=== PATIENT | female | born 1945 | race Hispanic/Latino ===

== ENCOUNTER → 2018-02-13 | Outpatient (CLI) | payer OTHER | LOC: RAH 14:04 | PROVIDERS: ATTEND Internal Medicine | DX: Z12.31 Encounter for screening mammogram for malignant neoplasm of breast (principal) | CPT/HCPCS: 77067 ==

== ENCOUNTER → 2019-02-16 | Outpatient (CLI) | payer OTHER | END | disposition home or self-care (01) | LOC: RAH 15:12 | PROVIDERS: ATTEND Internal Medicine | DX: Z12.31 Encounter for screening mammogram for malignant neoplasm of breast (principal) | CPT/HCPCS: 77067 ==

== ENCOUNTER → 2019-03-20 | Outpatient (CLI) | payer OTHER | END | disposition home or self-care (01) | LOC: RAH 16:19 | PROVIDERS: ATTEND Internal Medicine | DX: M25.512 Pain in left shoulder (principal) | CPT/HCPCS: 73030 ==

== ENCOUNTER → 2019-04-11 | Outpatient (CLI) | payer OTHER | END | disposition home or self-care (01) | LOC: OIH 14:42 | PROVIDERS: ATTEND Internal Medicine Cardiovascular Disease | DX: M47.812 Spondylosis without myelopathy or radiculopathy, cervical region (principal); M85.88 Other specified disorders of bone density and structure, other site; M48.02 Spinal stenosis, cervical region | CPT/HCPCS: 72040 ==

== ENCOUNTER → 2019-04-23 | Outpatient (CLI) | payer OTHER | END | disposition home or self-care (01) | LOC: OIH 15:16 | PROVIDERS: ATTEND Internal Medicine Cardiovascular Disease | DX: Z13.6 Encounter for screening for cardiovascular disorders (principal) | CPT/HCPCS: 75571 ==

== ENCOUNTER → 2020-03-19 | Outpatient (CLI) | payer OTHER | END | disposition home or self-care (01) | LOC: RAH 10:56 | PROVIDERS: ATTEND Internal Medicine | DX: S32.010A Wedge compression fracture of first lumbar vertebra, initial encounter for closed fracture (principal); S32.020A Wedge compression fracture of second lumbar vertebra, initial encounter for closed fracture; M16.12 Unilateral primary osteoarthritis, left hip; X58.XXXA Exposure to other specified factors, initial encounter; Y93.89 Activity, other specified; Y92.89 Other specified places as the place of occurrence of the external cause; Y99.8 Other external cause status | CPT/HCPCS: 72100; 73502 ==

== ENCOUNTER → 2021-02-02 | Outpatient (CLI) | payer OTHER | END | disposition home or self-care (01) | LOC: RAH 11:46 | PROVIDERS: ATTEND Internal Medicine | DX: Z12.31 Encounter for screening mammogram for malignant neoplasm of breast (principal); N64.89 Other specified disorders of breast | CPT/HCPCS: 77067 ==

== ENCOUNTER 2022-02-09 01:57 | Inpatient (IN) | payer OTHER ==
[~2022-02-09] VITALS: Ht 144.8 cm; Wt 46.4 kg
[2022-02-09] VITALS (21 sets, daily range): BP systolic 122–219; BP diastolic 59–105
[2022-02-09 03:20] LABS: BASOPHILS % (AUTO) 0.2 % (0.0-5.0); HEMATOCRIT 38.7 % (36-48); LYMPHOCYTES % (AUTO) 19.2 % (21.0-51.0); MEAN CORPUSCULAR HEMOGLOBIN 33.3 pg (27.0-33.0); MEAN CORPUSCULAR HGB CONC 34.4 g/dL (32.0-36.0); MONOCYTES % (AUTO) 2.1 % (3.0-13.0); NEUTROPHILS % (AUTO) 78.3 % (40.0-77.0); PLATELET COUNT (AUTO) 234 K/uL (130-400); RED BLOOD CELL COUNT(AUTO) 3.99 MIL/uL (4.00-5.50); RED CELL DISTRIBUTION WIDTH 12.4 % (11.0-15.5); WHITE BLOOD COUNT (AUTO) 6.6 K/uL (4.8-10.8)
[2022-02-09] MEDS ORDERED: METOCLOPRAMIDE 10 MG/2 ML VIAL IVP ONE (03:30)
[2022-02-09] MEDS ORDERED: FAMOTIDINE 20MG VIAL IV ONE (03:30)
[2022-02-09] MEDS ORDERED: ONDANSETRON 4MG INJ IVP ONE (03:30)
[2022-02-09] MEDS ORDERED: 0.9%NACL 1000ML 1,000 ML IV ONE ×2 (03:30→06:00)
[2022-02-09] MEDS ORDERED: PANTOPRAZOLE 40 MG/VIAL IVP ONE (03:30)
[2022-02-09 03:31] LABS: CREATININE 0.9 mg/dL (0.5-1.5); POTASSIUM 3.4 mmol/L (3.5-5.1)
[2022-02-09 03:36] LABS: ALBUMIN 4.4 g/dL (3.5-5.0); BILIRUBIN,TOTAL 0.4 mg/dL (0.2-1.0); TOTAL PROTEIN, SERUM 7.1 g/dL (6.0-8.3)
[2022-02-09] MEDS ORDERED: KETOROLAC 15MG/ML VIAL (15MG/ML) IV ONE (06:00)
[2022-02-09 06:03] LABS: APPEARANCE,URINE Cloudy (CLEAR); BILIRUBIN,URINE Negative (NEGATIVE); COLOR,URINE Yellow (YELLOW); GLUCOSE, URINE (UA) Negative (NEGATIVE); KETONES,URINE Negative (NEGATIVE); LEUKOCYTE ESTERASE ,URINE Small (NEGATIVE); NITRATE,URINE Negative (NEGATIVE); OCCULT BLOOD,URINE Negative (NEGATIVE); PH,URINE 5.5 (5.0-8.0); PROTEIN,URINE Trace mg/dL (NEGATIVE); UROBILINOGEN,URINE 0.2 mg/dL (0.2-1.0)
[2022-02-09 06:12] LABS: BACTERIA,URINE Many /HPF (None Seen); RBC,URINE None Seen /HPF (0-1); SQUAMOUS EPITHELIAL CELL,UR Rare /HPF (0-2); WBC,URINE 0-1 /HPF (0-1)
[2022-02-09] MEDS ORDERED: IOHEXOL 350 MG/ML 100ML INFUS..BTL IV ONE (06:37)
[2022-02-09] MEDS ORDERED: CEFTRIAXONE 1G VIAL IVP SCH (07:00)
[2022-02-09] MEDS ORDERED: LACTATED RINGERS 1000ML 1,000 ML IV SCH (08:00)
[2022-02-09] MEDS ORDERED: MORPHINE 2 MG SYG IVP SCH (08:00)
[2022-02-09] MEDS ORDERED: 0.9%NACL 50ML 50 ML IV ONE (08:25)
[2022-02-09] MEDS: ZOSYN 3.375GM +NS 50ML IV SCH ×4 (08:43→21:20)
[2022-02-09] MEDS: FLUCONAZOLE 200 MG/NS 100 ML 100 ML IV SCH (09:00)
[2022-02-09] MEDS ORDERED: THIAMINE HCL 100 MG/ML 2ML VIAL IVP SCH (09:00)
[2022-02-09] MEDS ORDERED: HYDROMORPHONE 0.5 MG SYG (0.5MG/0.5ML) IVP PRN (09:00)
[2022-02-09] MEDS ORDERED: PANTOPRAZOLE 40 MG/VIAL IVP SCH ×2 (09:00)
[2022-02-09] MEDS: LACTATED RINGERS 1000ML 1,000 ML IV SCH ×3 (09:38→22:20)
[2022-02-09 09:40] LABS: B-TYPE NATRIURETIC PEPTIDE 72 pg/mL (0-100)
[2022-02-09] MEDS: THIAMINE HCL 100 MG/ML 2ML VIAL IVP SCH (10:03)
[2022-02-09 10:27] LABS: ERYTHROCYTE SEDIMENTATION RATE 0 MM/HR (0-30)
[2022-02-09] MEDS ORDERED: PROPOFOL 10 MG/ML 20ML VIAL IV ONE (15:45)
[2022-02-09] MEDS ORDERED: ROCURONIUM 10MG/1ML SYR 10 MG/ML ML ONE (15:45)
[2022-02-09] MEDS ORDERED: LIDOCAINE PF 100MG/5ML (2%) SYRINGE 5ML ONE (15:45)
[2022-02-09] MEDS ORDERED: SUCCINYLCHOLINE CHLORIDE 20 MG/ML 10 ML VIAL ONE (15:45)
[2022-02-09] MEDS ORDERED: FENTANYL CITRATE PF 50 MCG/1 ML 5ML AMP IV ONE (15:46)
[2022-02-09 15:52] LABS: INR 1.01 (0.85-1.15)
[2022-02-09] MEDS ORDERED: MIDAZOLAM HCL 1 MG/ML 2ML VIAL ONE (15:52)
[2022-02-09 15:54] LABS: PARTIAL THROMBOPLASTIN TIME 29.1 SEC (26.3-35.5)
[2022-02-09] MEDS ORDERED: ONDANSETRON 4MG INJ ONE (16:27)
[2022-02-09] MEDS ORDERED: BUPIVACAINE/PF 0.5% 30ML VIAL ONE (17:03)
[2022-02-09] MEDS ORDERED: NEOSTIGMINE 5MG/5ML SYR IV ONE (18:08)
[2022-02-09] MEDS ORDERED: GLYCOPYRROLATE 1 MG/5 ML SYRINGE ONE (18:08)
[2022-02-09] MEDS ORDERED: ONDANSETRON 4MG INJ IVP PRN (18:30)
[2022-02-09] MEDS ORDERED: LABETALOL 20MG SYG IV ONE (18:37)
[2022-02-09] MEDS ORDERED: MORPHINE 2 MG SYG ONE (18:37)
[2022-02-09] MEDS ORDERED: ZOSYN 3.375GM+NS 50ML 50 ML IV SCH (21:00)
[2022-02-09] MEDS: PANTOPRAZOLE 40 MG/VIAL IVP SCH (21:20)
[2022-02-10] VITALS (19 sets, daily range): BP systolic 112–152; BP diastolic 56–81
[2022-02-10 03:42] LABS: BASOPHILS % (AUTO) 0.1 % (0.0-5.0); HEMATOCRIT 28.9 % (36-48); LYMPHOCYTES % (AUTO) 8.4 % (21.0-51.0); MEAN CORPUSCULAR HEMOGLOBIN 32.3 pg (27.0-33.0); MEAN CORPUSCULAR HGB CONC 33.9 g/dL (32.0-36.0); MEAN CORPUSCULAR VOLUME 95.4 fL (79-99); MONOCYTES % (AUTO) 5.5 % (3.0-13.0); NEUTROPHILS % (AUTO) 85.6 % (40.0-77.0); PLATELET COUNT (AUTO) 152 K/uL (130-400); RED BLOOD CELL COUNT(AUTO) 3.03 MIL/uL (4.00-5.50); RED CELL DISTRIBUTION WIDTH 12.8 % (11.0-15.5); WHITE BLOOD COUNT (AUTO) 9.6 K/uL (4.8-10.8)
[2022-02-10 03:57] LABS: ALBUMIN 2.6 g/dL (3.5-5.0); BILIRUBIN,DIRECT 0.2 mg/dL (0.0-0.3); BILIRUBIN,TOTAL 0.3 mg/dL (0.2-1.0); CREATININE 0.7 mg/dL (0.5-1.5); MAGNESIUM 1.8 mg/dL (1.80-2.40); POTASSIUM 3.2 mmol/L (3.5-5.1)
[2022-02-10] MEDS: ZOSYN 3.375GM +NS 50ML IV SCH ×3 (05:09→20:36)
[2022-02-10] MEDS ORDERED: POTASSIUM CHLORIDE 20MEQ/100ML 100 ML IV PRN (06:00)
[2022-02-10] MEDS: THIAMINE HCL 100 MG/ML 2ML VIAL IVP SCH (08:00)
[2022-02-10] MEDS: FLUCONAZOLE 200 MG/NS 100 ML 100 ML IV SCH (08:00)
[2022-02-10] MEDS: PANTOPRAZOLE 40 MG/VIAL IVP SCH ×2 (08:00→20:36)
[2022-02-10] MEDS: MEPERIDINE-PF 25 MG/ML SYG IV PRN ×3 (08:02→20:41)
[2022-02-10] MEDS: LACTATED RINGERS 1000ML 1,000 ML IV SCH ×3 (11:40→21:10)
[2022-02-11 00:36] VITALS: BP 164/77
[2022-02-11] MEDS ORDERED: LIDOCAINE HCL-MPF 1% 2ML VIAL IV PRN (01:00)
[2022-02-11] MEDS ORDERED: KCL 20 MEQ ERTAB PO PRN (01:00)
[2022-02-11] MEDS ORDERED: POTASSIUM CHLORIDE 20MEQ/100ML 100 ML IV PRN (01:00)
[2022-02-11] MEDS: LACTATED RINGERS 1000ML 1,000 ML IV SCH ×4 (01:00→23:50)
[2022-02-11] MEDS: ZOSYN 3.375GM +NS 50ML IV SCH ×3 (03:38→21:31)
[2022-02-11] MEDS: POTASSIUM CHLORIDE 10% ELIXIR 20 MEQ/15 ML UDCUP PO PRN ×3 (03:38→14:28)
[2022-02-11] MEDS: MEPERIDINE-PF 25 MG/ML SYG IV PRN ×2 (03:44→21:33)
[2022-02-11 04:32] VITALS: BP 146/75
[2022-02-11 04:39] LABS: BASOPHILS % (AUTO) 0.3 % (0.0-5.0); EOSINOPHILS % (AUTO) 0.7 % (0.0-8.0); HEMATOCRIT 30.5 % (36-48); LYMPHOCYTES % (AUTO) 13.1 % (21.0-51.0); MEAN CORPUSCULAR HEMOGLOBIN 33.3 pg (27.0-33.0); MEAN CORPUSCULAR HGB CONC 33.8 g/dL (32.0-36.0); MEAN CORPUSCULAR VOLUME 98.7 fL (79-99); MONOCYTES % (AUTO) 4.7 % (3.0-13.0); NEUTROPHILS % (AUTO) 80.8 % (40.0-77.0); PLATELET COUNT (AUTO) 159 K/uL (130-400); RED BLOOD CELL COUNT(AUTO) 3.09 MIL/uL (4.00-5.50); RED CELL DISTRIBUTION WIDTH 13.1 % (11.0-15.5); WHITE BLOOD COUNT (AUTO) 8.9 K/uL (4.8-10.8)
[2022-02-11 05:01] LABS: CREATININE 0.6 mg/dL (0.5-1.5); POTASSIUM 3.6 mmol/L (3.5-5.1)
[2022-02-11] MEDS ORDERED: DEXTROSE 50%-WATER 50 ML DISP.SYRIN IV PRN (07:00)
[2022-02-11] MEDS ORDERED: GLUCAGON 1MG KIT 1 MG ML IM PRN (07:00)
[2022-02-11 08:00] VITALS: BP 145/83
[2022-02-11] MEDS: FLUCONAZOLE 200 MG/NS 100 ML 100 ML IV SCH (08:45)
[2022-02-11] MEDS: THIAMINE HCL 100 MG/ML 2ML VIAL IVP SCH (08:45)
[2022-02-11] MEDS: PANTOPRAZOLE 40 MG/VIAL IVP SCH ×2 (08:45→21:31)
[2022-02-11 12:00] VITALS: BP 161/91
[2022-02-11] MEDS: NIFEDIPINE 10 MG CAP PO SCH ×2 (14:45→21:01)
[2022-02-11 16:00] VITALS: BP 112/63
[2022-02-11 20:24] VITALS: BP 136/77
[2022-02-12] VITALS (9 sets, daily range): BP systolic 119–150; BP diastolic 67–91
[2022-02-12] MEDS: LACTATED RINGERS 1000ML 1,000 ML IV SCH ×2 (00:07→20:04)
[2022-02-12] MEDS: ZOSYN 3.375GM +NS 50ML IV SCH (04:43)
[2022-02-12 05:05] LABS: BASOPHILS % (AUTO) 0.5 % (0.0-5.0); HEMATOCRIT 33.4 % (36-48); LYMPHOCYTES % (AUTO) 19.9 % (21.0-51.0); MEAN CORPUSCULAR HEMOGLOBIN 32.4 pg (27.0-33.0); MEAN CORPUSCULAR HGB CONC 33.8 g/dL (32.0-36.0); MEAN CORPUSCULAR VOLUME 95.7 fL (79-99); MONOCYTES % (AUTO) 6.7 % (3.0-13.0); NEUTROPHILS % (AUTO) 70.4 % (40.0-77.0); PLATELET COUNT (AUTO) 189 K/uL (130-400); RED BLOOD CELL COUNT(AUTO) 3.49 MIL/uL (4.00-5.50); RED CELL DISTRIBUTION WIDTH 12.6 % (11.0-15.5); WHITE BLOOD COUNT (AUTO) 6.1 K/uL (4.8-10.8)
[2022-02-12 05:39] LABS: CREATININE 0.6 mg/dL (0.5-1.5); MAGNESIUM 1.7 mg/dL (1.80-2.40); PHOSPHORUS 2.3 mg/dL (2.5-4.9); POTASSIUM 3.4 mmol/L (3.5-5.1); THYROID STIMULATING HORMONE 1.44 uIU/mL (0.36-3.74)
[2022-02-12] MEDS: POTASSIUM CHLORIDE 10% ELIXIR 20 MEQ/15 ML UDCUP PO PRN ×2 (05:53→08:59)
[2022-02-12] MEDS ORDERED: MAGNESIUM 2GM PREMIX 50ML 50 ML IV PRN (06:00)
[2022-02-12] MEDS: PANTOPRAZOLE 40 MG/VIAL IVP SCH ×2 (08:58→20:04)
[2022-02-12] MEDS: FLUCONAZOLE 200 MG/NS 100 ML 100 ML IV SCH (08:58)
[2022-02-12] MEDS: THIAMINE HCL 100 MG/ML 2ML VIAL IVP SCH (08:58)
[2022-02-12] MEDS: NIFEDIPINE 10 MG CAP PO SCH ×3 (09:00→21:00)
[2022-02-12] MEDS ORDERED: POTASSIUM CHLORIDE 10% ELIXIR 20 MEQ/15 ML UDCUP PO SCH (15:30)
[2022-02-12] MEDS: LEVOFLOXACIN 500 MG/D5W 100 ML 100 ML IV SCH (15:48)
[2022-02-12] MEDS ORDERED: PREDNISONE 20 MG TABLET PO ONE (16:00)
[2022-02-12] MEDS ORDERED: DIPHENHYDRAMINE HCL 25 MG CAPSULE PO ONE (16:00)
[2022-02-12] MEDS: NEUTRA-PHOS PACKET 1 EACH PO SCH ×2 (17:45→22:29)
[2022-02-12] MEDS ORDERED: METOPROLOL TARTRATE 1 MG/ML 5ML VIAL IV ONE ×2 (20:57→21:30)
[2022-02-12] MEDS ORDERED: DILTIAZEM 25MG INJ IVP ONE (21:30)
[2022-02-12 21:36] LABS: CREATININE 0.6 mg/dL (0.5-1.5); POTASSIUM 5.2 mmol/L (3.5-5.1)
[2022-02-13] MEDS: LACTATED RINGERS 1000ML 1,000 ML IV SCH ×2 (01:42→15:50)
[2022-02-13 01:57] VITALS: BP 122/75
[2022-02-13 04:16] LABS: MEAN CORPUSCULAR HEMOGLOBIN 32.1 pg (27.0-33.0); MEAN CORPUSCULAR HGB CONC 33.9 g/dL (32.0-36.0); MEAN CORPUSCULAR VOLUME 94.7 fL (79-99); RED BLOOD CELL COUNT(AUTO) 3.8 MIL/uL (4.00-5.50); RED CELL DISTRIBUTION WIDTH 12.2 % (11.0-15.5); WHITE BLOOD COUNT (AUTO) 4.8 K/uL (4.8-10.8)
[2022-02-13 04:43] LABS: CREATININE 0.7 mg/dL (0.5-1.5); PHOSPHORUS 5.2 mg/dL (2.5-4.9); POTASSIUM 4.5 mmol/L (3.5-5.1)
[2022-02-13 08:00] VITALS: BP 150/86
[2022-02-13] MEDS: NIFEDIPINE ER 30 MG TAB PO SCH (08:54)
[2022-02-13] MEDS: NEUTRA-PHOS PACKET 1 EACH PO SCH ×4 (08:54→20:07)
[2022-02-13] MEDS: PANTOPRAZOLE 40 MG/VIAL IVP SCH ×2 (08:54→20:07)
[2022-02-13] MEDS: FLUCONAZOLE 200 MG/NS 100 ML 100 ML IV SCH (08:54)
[2022-02-13 11:49] VITALS: BP 116/44
[2022-02-13] MEDS: LEVOFLOXACIN 500 MG/D5W 100 ML 100 ML IV SCH (15:28)
[2022-02-13 19:25] VITALS: BP 132/73
[2022-02-13 23:31] VITALS: BP 161/86
[2022-02-14 03:37] VITALS: BP 144/94
[2022-02-14] MEDS: LACTATED RINGERS 1000ML 1,000 ML IV SCH (04:13)
[2022-02-14 08:00] VITALS: BP 150/86
[2022-02-14] MEDS: NIFEDIPINE ER 30 MG TAB PO SCH (09:31)
[2022-02-14] MEDS: FLUCONAZOLE 200 MG/NS 100 ML 100 ML IV SCH (09:31)
[2022-02-14] MEDS: PANTOPRAZOLE 40 MG/VIAL IVP SCH (09:31)
[2022-02-14] MEDS ORDERED: LISI1TAB49 PO (10:48)
[2022-02-14] MEDS ORDERED: METR-172 PO (10:48)
[2022-02-14] MEDS ORDERED: NIFE-40 PO (10:48)
[2022-02-14] MEDS ORDERED: LEVO500T90 PO (10:48)
[2022-02-14] MEDS ORDERED: ACET-2079 PO (10:48)
[2022-02-14] MEDS ORDERED: LISINOPRIL 10 MG TABLET PO SCH (11:00)
[2022-02-14 12:01] VITALS: BP 135/85
[2022-02-14] MEDS ORDERED: PREDNISONE 20 MG TABLET PO SCH (12:14)
[2022-02-14] MEDS ORDERED: DIPHENHYDRAMINE HCL 25 MG CAPSULE PO SCH (12:30)
[2022-02-14 14:45] VITALS: BP 128/76
[2022-02-14] MEDS: LEVOFLOXACIN 500 MG/D5W 100 ML 100 ML IV SCH (15:30)
[2022-02-15] MEDS ORDERED: LISINOPRIL 10 MG TABLET PO SCH (11:00)
== END 2022-02-14 18:34 | disposition home or self-care (01) | DRG 326 ==
LOC: EDH 01:57 → EDHIP 08:56 → 2CH 19:43 → 4DH 02-10 18:22
PROVIDERS: ADMIT Internal Medicine; ATTEND Internal Medicine
PROC: 0DU647Z Supplement Stomach with Autologous Tissue Substitute, Percutaneous Endoscopic Approach (ICD-10-PCS; principal; 2022-02-09 16:36)
DX: K25.5 Chronic or unspecified gastric ulcer with perforation (principal); E43 Unspecified severe protein-calorie malnutrition; K63.1 Perforation of intestine (nontraumatic); K65.0 Generalized (acute) peritonitis; E87.1 Hypo-osmolality and hyponatremia; E87.2 Acidosis; N39.0 Urinary tract infection, site not specified; E86.1 Hypovolemia; Z20.822 Contact with and (suspected) exposure to COVID-19; M19.90 Unspecified osteoarthritis, unspecified site; K21.9 Gastro-esophageal reflux disease without esophagitis; D63.8 Anemia in other chronic diseases classified elsewhere; E78.00 Pure hypercholesterolemia, unspecified; E78.5 Hyperlipidemia, unspecified; E83.39 Other disorders of phosphorus metabolism; E83.42 Hypomagnesemia; E87.6 Hypokalemia; E86.0 Dehydration; B96.1 Klebsiella pneumoniae [K. pneumoniae] as the cause of diseases classified elsewhere; R54 Age-related physical debility; M81.0 Age-related osteoporosis without current pathological fracture; Z68.22 Body mass index [BMI] 22.0-22.9, adult; Z79.82 Long term (current) use of aspirin; Z87.891 Personal history of nicotine dependence; Z88.0 Allergy status to penicillin; Z90.710 Acquired absence of both cervix and uterus; Z88.8 Allergy status to other drugs, medicaments and biological substances; L50.0 Allergic urticaria; T36.0X5A Adverse effect of penicillins, initial encounter
CPT/HCPCS: 36415; 74177; 76705; 80048; 80053; 80076; 81001; 82533; 82607; 82728; 82746; 82948; 83540; 83550; 83605; 83690; 83735; 83880; 84100; 84145; 84443; 84484; 85025; 85027; 85610; 85651; 85730; 86140; 86677; 86850; 86900; 86901; 87040; 87077; 87088; 87186; 87635; 87804; 93005; 97039; C9113; G0378; J0330; J0696; J1450; J1885; J1956; J2001; J2175; J2250; J2405; J2543; J2704; J2710; J2765; J3010; J3411; J3475; J3490; J7030; J7120; Q0163; Q9967

== ENCOUNTER → 2023-01-26 | Outpatient (CLI) | payer OTHER ==
[~2023-01-26] MED LIST: ACET-2079 PO; LEVO-70 PO; LISI1TAB49 PO; METR-172 PO; NIFE-40 PO
== END | disposition home or self-care (01) ==
LOC: RAH 15:08
PROVIDERS: ATTEND Internal Medicine
DX: Z12.31 Encounter for screening mammogram for malignant neoplasm of breast (principal)
CPT/HCPCS: 77067